=== PATIENT | female | born 1950 | race Caucasian/White ===

== ENCOUNTER → 2018-07-28 | Outpatient (CLI) | payer MEDICARE, OTHER ==
--- NOTE | 2018-07-28 12:20 | PCVCIMAG ---
APPROVED REPORT Study performed: 07/28/2018 08:29:07 EXAM: Limited 2D and color flow Echocardiogram Patient Location: Echo lab Room #: 2Status: routine BSA: 1.91 HR: 50 bpmBP: 126/80 mmHg Rhythm: Sinus Bradycardia Other Information Study Quality: Adequate Risk Factors: Cardiac Risk Factors: HTN Indications CAD Cardiomyopathy Hypertension/HDD Hx coronary stent 2D Dimensions IVSd: 10.12 (7-11mm) LVDd: 44.64 mm PWd: 11.76 (7-11mm) LVDs: 20.15 (25-40mm) Left Atrium: 40.86 (27-40mm) LV Single Plane 4CH: 74.17 % LV Single Plane 2CH: 65.94 % Biplane EF: 71.0 % Volumes Left Atrial Volume (Systole) Single Plane 4CH: 65.37 mLSingle Plane 2CH: 44.46 mL Left Ventricle The left ventricle is normal size. There is normal left ventricular wall thickness. The left ventricular systolic function is normal. The left ventricular ejection fraction is within the normal range. The left ventricular systolic function is normal. The left ventricular ejection fraction is within the normal range. The left ventricular systolic function is normal. The left ventricular ejection fraction is within the normal range. LVEF is 65-70%. Atria The left atrium size is normal. Aortic Valve The aortic valve is normal in structure. No aortic regurgitation is present. Mitral Valve The mitral valve is normal in structure. There is no mitral valve regurgitation noted. No evidence of mitral valve stenosis. Tricuspid Valve The tricuspid valve is normal in structure. There is no tricuspid valve regurgitation noted. Pulmonic Valve The pulmonary valve is normal in structure. There is no pulmonic valvular regurgitation. Great Vessels IVC is normal in size and collapses >50% with inspiration. <Conclusion> The left ventricle is normal size. LVEF is 65-70%. The left atrium size is normal. The aortic valve is normal in structure. There is no mitral valve regurgitation noted. There is no tricuspid valve regurgitation noted. IVC is normal in size and collapses >50% with inspiration.
--- NOTE | 2018-07-28 13:20 | PCVCIMAG ---
EXAM: AORTOILIAC DUPLEX INDICATION: Palpable abdominal fullness. Small abdominal aortic aneurysm seen on catheterization. FINDINGS: AORTA: Suprarenal aorta measures maximum diameter of 2.0 cm. There is not a fusiform infrarenal aortic aneurysm. The infrarenal aorta measures maximum diameter of 2.7 x 2.8 cm. No aortic stenosis. RIGHT COMMON ILIAC ARTERY: Maximum diameter is 1.5 cm. No significant stenosis. RIGHT EXTERNAL ILIAC ARTERY: No significant stenosis. LEFT COMMON ILIAC ARTERY: Maximum diameter is 1.3 cm. No significant stenosis. LEFT EXTERNAL ILIAC ARTERY: No significant stenosis. IMPRESSION: Moderate ectasia infrarenal abdominal aorta measuring up to 2.8 cm in greatest diameter. LOC:[id number]
== END | disposition home or self-care (01) ==
LOC: PCVCIMAG 11:21
PROVIDERS: ATTEND Internal Medicine Cardiovascular Disease
DX: I42.9 Cardiomyopathy, unspecified (principal); I10 Essential (primary) hypertension; R07.9 Chest pain, unspecified; I25.10 Atherosclerotic heart disease of native coronary artery without angina pectoris; I71.4 Abdominal aortic aneurysm, without rupture; I25.2 Old myocardial infarction; Z82.49 Family history of ischemic heart disease and other diseases of the circulatory system; Z87.891 Personal history of nicotine dependence; Z79.82 Long term (current) use of aspirin
CPT/HCPCS: 80061; 93005; 93308; 93978; G0463

== ENCOUNTER → 2018-08-24 | Outpatient (CLI) | payer MEDICARE, OTHER ==
--- NOTE | 2018-08-24 12:58 | PCVCIMAG ---
APPROVED REPORT Study performed: 08/24/2018 12:03:48 Exam: Stress Echocardiogram Indication: CAD s/p AL, Hypertension, Hyperlipidemia Patient Location: Echo lab Stress Nurse: Sophie Ward RN Status: routine Ht: 5 ft 6 in HR: 75 bpm BP: 140/100 mmHg Rhythm: NSR Medical History Medical History: Hyperlipidemia, HTN, CAD, Stent, Myocardial infarction Exercise History: Physically active Procedure The patient underwent an Exercise Stress Test using the Feliciano Protocol. Blood pressure, heart rate, and EKG were monitored. An Echocardiogram was performed by automation control technician in four stages in quad fashion. At peak stress, four selected images were obtained and placed side by side with resting images for comparison. Stress Test Details Stress Test: Exercise stress testing was performed using a Feliciano protocol. HR Resting HR: 75 bpmMax Heart Rate (APMHR): 151 bpm Max HR Achieved: 151 bpmTarget HR (85% APMHR): 128 bpm % of APMHR: 100 Recovery HR: 136 bpm HR response to stress: Normal HR response to stress BP Resting BP: 140/100 mmHg Max BP: 210/104 mmHg Recovery BP: 160/90 mmHg ECG Resting ECG: Sinus Rhythm Stress ECG: Sinus Rhythm Recovery ECG: Sinus Rhythm Clinical Reason for Termination: Maximal effort Exercise duration: 8 min 54 sec Highest Stage Achieved: Stage 3: 3.4 mph at 14% grade. Exercise capacity: 10.10 METs Overall Exercise Capacity for Age: Good Pre-Stress Echo The resting Echocardiogram showed normal left ventricular contractility with an estimated Ejection Fraction of about 55-60%. Normal wall motion in all segments on baseline images. Post-Stress Echo The stress Echocardiogram showed normal left ventricular contractility with an estimated Ejection Fraction of about 60-65%. Normal augmentation of wall motion in all segments on post stress images. Clinical No clinical or ECG evidence for ischemia. Conclusion Clinical Response: Non-ischemic Exercise Capacity: Average Stress ECG Response: Non-ischemic Stress Echo Images: Non-ischemic The left ventricle is normal in size and wall thickness in both the rest and stress images. Other Information Study Quality: Good <Conclusion> The left ventricle is normal in size and wall thickness in both the rest and stress images.
== END | disposition home or self-care (01) ==
LOC: PCVCIMAG 11:00
PROVIDERS: ATTEND Internal Medicine Cardiovascular Disease
DX: I25.10 Atherosclerotic heart disease of native coronary artery without angina pectoris (principal); I10 Essential (primary) hypertension; I71.4 Abdominal aortic aneurysm, without rupture; I21.9 Acute myocardial infarction, unspecified; E78.5 Hyperlipidemia, unspecified
CPT/HCPCS: 93325; 93351

== ENCOUNTER → 2019-01-01 | Outpatient (CLI) | payer MEDICARE, OTHER ==
[~2019-01-01] MED LIST: REGADENOSON 0.4 MG/5 ML DISP.SYRIN. IV ONE
--- NOTE | 2019-01-02 17:05 | PCVCIMAG ---
APPROVED REPORT Imaging Protocol: Rest Tc-99m/Stress Tc-99m 1 day Study performed: 01/01/2019 08:43:25 Indication: CAD, Paroyxmal Atrial Fibrillation Patient Location: Out-Patient Stress Nurse: Tosha Coombs RN, Sophie Ward RN IN Tech:La DEVIN EspinoMT Ht: 6 ft 0 in Wt: 177 lbs BSA: 2.02 m2 HR: 65 bpm BP: 181/90 mmHg BMI: 24.0 Rhythm: Sinus Rhythm, nonspecific ST-T abnormalities Medical History Medical History: [place] Medications: Amiodarone, ASA, Atorvastatin, Edarbi, Cardizem, Bystolic, Effient, Aldactone Allergies: No known drug allergies Cardiac Risk Factors: Age Previous Cardiac Procedures: 2018 PCI, RI with Stent to LAD Pretest Chest Pain Characteristics: No chest pain Exercise History: Sedentary Meds Held (24 hrs): Bystolic Resting Data Rest SPECT myocardial perfusion imaging was performed in supine position 45 minutes following the intravenous injection of 10.9 mCi of Tc-99m Sestamibi. Time of rest injection: 809 Date: 01/01/2019 Administration Route: IV Administration Site: Right AC Pharmacologic Stress Pharmacologic stress test was performed by injecting Regadenoson 0.4 mg IV push over 10-15 seconds immediately followed by the intravenous injection of 35.6 mCi of Tc-99m Sestamibi. Time of stress injection: 914 Date: 01/01/2019 Administration Route: IV Administration Site: Right AC Gated Stress SPECT was performed 45 minutes after stress injection. The images were gated to evaluate regional wall motion and calculate left ventricular ejection fraction. Stress Test Details Stress Test: Pharmacologic stress was paired with low level exercise. Reason for pharmacologic stress test: generalized weakness. HRMax Heart Rate (APMHR): 150 bpm Resting HR: 65 bpmTarget HR (85% APMHR): 127 bpm Max HR Achieved: 109 bpm % of APMHR: 72 Recovery HR: 83 bpm BP Resting BP: 181/90 mmHg Max BP: 180/106 mmHg Recovery BP: 152/82 mmHg ECG Resting ECG: Sinus Rhythm, nonspecific ST-T abnormalities Stress ECG: Sinus Rhythm, nonspecific ST-T abnormalities Recovery ECG: Sinus Rhythm, nonspecific ST-T abnormalities Clinical Reason for Termination: Completed protocol Stress Symptoms: Headache, Chest heaviness Exercise duration: 4 min 00 sec Exercise capacity: 1.6 METs Symptoms resolved with caffeine. Stress ECG Conclusion ECG: Non-ischemic Study Quality Study: Good Study Data Post stress, the left ventricular ejection was 77%.. SSS: 4 SRS: 23 SDS: 0 TID = 82.00. Perfusion No evidence of stress induced ischemia. 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 Nuclear Conclusion No evidence of stress induced ischemia. 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 Interpreted by: Richardson Noriega MD Electronically Approved: 01/01/2019 13:46:12 <Conclusion> ECG: Non-ischemic
== END | disposition home or self-care (01) ==
LOC: PCVCIMAG 13:00
PROVIDERS: ATTEND Internal Medicine Cardiovascular Disease
DX: I25.10 Atherosclerotic heart disease of native coronary artery without angina pectoris (principal); I25.2 Old myocardial infarction; I48.0 Paroxysmal atrial fibrillation
CPT/HCPCS: 78452; 93017; A9500; J2785

== ENCOUNTER → 2019-04-25 | Outpatient (CLI) | payer MEDICARE, OTHER | END | disposition home or self-care (01) | LOC: PCVCCLINIC 10:00 | PROVIDERS: ATTEND Internal Medicine Cardiovascular Disease | DX: I25.10 Atherosclerotic heart disease of native coronary artery without angina pectoris (principal); E78.5 Hyperlipidemia, unspecified; I25.2 Old myocardial infarction; I10 Essential (primary) hypertension; I48.0 Paroxysmal atrial fibrillation; Z87.891 Personal history of nicotine dependence | CPT/HCPCS: 36415; 80061; 93005; G0463 ==